=== PATIENT | female | born 1980 | race Caucasian/White ===

== ENCOUNTER 2018-08-01 19:44 | Emergency (ER) | payer OTHER ==
[~2018-08-01] VITALS: Ht 152.4 cm; Wt 47.2 kg
[2018-08-01 20:03] VITALS: BP 127/63
--- NOTE | 2018-08-01 20:07 | NUR ---
Pt ambulated to bed 2 with vss.
--- NOTE | 2018-08-01 20:10 | NUR ---
PT C/O COUGH X 3 WEEKS. PAIN 8/10. LUNGS CLEAR BILAT.
[2018-08-01] MEDS ORDERED: ALUMINUM HYD/MAG/SIMETHICONE 30 ML, DICYCLOMINE HCL LIQUID 20 MG, LIDOCAINE VISCOUS 2% ... PO ONE ×3 (20:30)
[2018-08-01 22:08] VITALS: BP 127/63
--- NOTE | 2018-08-01 22:08 | NUR ---
Patient discharged with v/s stable. Written and verbal after care instructions given and explained. Patient alert, oriented and verbalized understanding of instructions. Ambulatory with steady gait. All questions addressed prior to discharge. ID band removed. Patient advised to follow up with PMD. Rx of PEPCID AND TYLENOL EXTRA STRENGTH given. Patient educated on indication of medication including possible reaction and side effects. Opportunity to ask questions provided and answered.
== END 2018-08-01 22:08 | disposition home or self-care (01) ==
LOC: MED 19:44
DX: J02.9 Acute pharyngitis, unspecified (principal); J45.909 Unspecified asthma, uncomplicated; K21.9 Gastro-esophageal reflux disease without esophagitis
CPT/HCPCS: 99282

== ENCOUNTER 2019-11-04 15:10 | Emergency (ER) | payer OTHER ==
[~2019-11-04] VITALS: Ht 152.4 cm; Wt 45.4 kg
[2019-11-04 16:23] VITALS: BP 109/62
--- NOTE | 2019-11-04 16:30 | NUR ---
WAIT AT LOBBY.
--- NOTE | 2019-11-04 16:38 | NUR ---
Patient to chair Louis. RN evaluating patient.
--- NOTE | 2019-11-04 16:49 | NUR ---
PT TAKEN TO XR VIA WC.
--- NOTE | 2019-11-04 16:52 | NUR ---
38 Y/F PRESENTS TO ED 2HOUR S/P STEPPING ON A RUST NAIL WITH R FOOT. PUNCTURE SITE CLEAN, NO REDNESS, NO DRAINAGE, NO EDUDATE. PUNCTURE WOUND NOT VISIBLE TO THE EYE. PT REQUESTING TDAP. PT DENIES ANY FEVER, CHILLS, OR BODY ACHES. PMH- ASTHMA NKDA
--- NOTE | 2019-11-04 17:00 | NUR ---
DR. ALCANTARA AT BEDSIDE.
[2019-11-04 17:16] VITALS: BP 109/62
== END 2019-11-04 17:16 | disposition home or self-care (01) ==
LOC: MED 15:10
DX: S91.331A Puncture wound without foreign body, right foot, initial encounter (principal); J45.909 Unspecified asthma, uncomplicated; W22.8XXA Striking against or struck by other objects, initial encounter; Y93.89 Activity, other specified; Y92.89 Other specified places as the place of occurrence of the external cause; Y99.8 Other external cause status
CPT/HCPCS: 73630; 90471; 90715; 99283

== ENCOUNTER 2020-07-03 18:04 | Emergency (ER) | payer OTHER ==
[~2020-07-03] VITALS: Ht 152.4 cm; Wt 45.8 kg
[2020-07-03 18:11] VITALS: BP 111/44
--- NOTE | 2020-07-03 18:52 | NUR ---
RONALD cooney, walked to lab.
[2020-07-03 19:03] VITALS: BP 111/44
--- NOTE | 2020-07-03 19:04 | NUR ---
Patient discharged with v/s stable. Written and verbal after care instructions given and explained. Patient alert, oriented and verbalized understanding of instructions. Ambulatory with steady gait. All questions addressed prior to discharge. ID band removed. Patient advised to follow up with PMD. Rx of ventolin HFA 90mcg inhalation QID PRN, and medrol 4mg tab PO given. Patient educated on indication of medication including possible reaction and side effects. Opportunity to ask questions provided and answered.
--- NOTE | 2020-07-03 19:05 | NUR ---
39 Y/O FEMALE C/O SOB X5HRS WITH DIZZINESS. DENIES N/V/D, DENIES FEVER/CHILLS. PMH: ASTHMA NKA
== END 2020-07-03 19:03 | disposition home or self-care (01) ==
LOC: MED 18:04
DX: R06.02 Shortness of breath (principal); Z20.828 Contact with and (suspected) exposure to other viral communicable diseases; J45.909 Unspecified asthma, uncomplicated
CPT/HCPCS: 99283; U0003

== ENCOUNTER 2020-09-18 14:29 | Emergency (ER) | payer OTHER ==
[~2020-09-18] VITALS: Ht 152.4 cm; Wt 47.6 kg
[2020-09-18 14:34] VITALS: BP 102/86
--- NOTE | 2020-09-18 14:41 | NUR ---
URINE SPECIMEN COLLECTED.
--- NOTE | 2020-09-18 14:44 | NUR ---
P;T AMB TO BED 5.
--- NOTE | 2020-09-18 15:02 | NUR ---
39 YEAR OLD FEMALE COMPLAINS OF VAGINAL BLEEDING AND LOWER ABDOMINAL PAIN X 3 DAYS. PT STATES FOR 7 WEEKS.PT AOX4, BREATHING EVEN AND UNLABORED, SKIN WARM AND DRY. BED IN LOWEST POSITION, LOCKED, BED RAIL UPX1. PMH - C SECTION ALLERGIES - NKA
[2020-09-18 15:09] LABS: BASOPHILS % (AUTO) 0.5 % (0.0-2.0); EOSINOPHILS # (AUTO) 0.1 K/uL (0-0.4); EOSINOPHILS % (AUTO) 1.9 % (0.0-4.0); HEMATOCRIT 35.2 % (36-48); HEMOGLOBIN 11.6 g/dL (12.0-16.0); LYMPHOCYTES # (AUTO) 1.8 K/uL (2.5-16.5); LYMPHOCYTES % (AUTO) 22.9 % (20.5-51.1); MEAN CORPUSCULAR HEMOGLOBIN 30 pg (27-31); MEAN CORPUSCULAR HGB CONC 33 g/dL (33-37); MEAN CORPUSCULAR VOLUME 91.5 fL (80-94); MONOCYTES # (AUTO) 0.5 K/uL (0.8-1.0); MONOCYTES % (AUTO) 6.2 % (1.7-9.3); NEUTROPHILS # (AUTO) 5.3 K/uL (1.8-7.7); NEUTROPHILS % (AUTO) 68.5 % (42.2-75.2); PLATELET COUNT (AUTO) 210 K/uL (140-450); RED BLOOD CELL COUNT(AUTO) 3.84 MIL/uL (4.20-5.40); RED CELL DISTRIBUTION WIDTH 13.3 % (11.6-13.7); WHITE BLOOD COUNT (AUTO) 7.7 K/uL (4.8-10.8)
[2020-09-18 15:17] LABS: APPEARANCE,URINE HAZY (CLEAR); BILIRUBIN,URINE NEGATIVE (NEGATIVE); BLOOD, URINE 3+ (NEGATIVE); LEUKOCYTE ESTERASE ,URINE TRACE (NEGATIVE); NITRITE, URINE NEGATIVE (NEGATIVE); UGLUCOSE NEGATIVE (NEGATIVE)
[2020-09-18 15:23] LABS: ANION GAP 12.2 (8-16); CARBON DIOXIDE 26.7 mmol/L (21-32); CREATININE 0.6 mg/dL (0.6-1.3); POTASSIUM 3.9 mmol/L (3.5-5.1)
[2020-09-18 15:28] LABS: COLOR,URINE SLIGHT BLOODY (YELLOW)
[2020-09-18 15:34] LABS: RBC,URINE TOO NUMEROUS TO COUN /HPF (0-5); WBC,URINE 0-5 /HPF (0-5)
--- NOTE | 2020-09-18 16:30 | NUR ---
PT ALERT AND AWAKE, BREATHING EVEN AND UNLABORED. NO DISTRESS NOTED.
[2020-09-18 17:05] VITALS: BP 102/86
--- NOTE | 2020-09-18 17:05 | NUR ---
Patient discharged with v/s stable. Written and verbal after care instructions about threatened miscarriage given and explained. Patient verbalized understanding. Ambulatory with steady gait. All questions addressed prior to discharge. Advised to follow up with PMD.
[2020-09-19] MEDS ORDERED: ACET-8386 PO (17:27)
== END 2020-09-18 17:05 | disposition home or self-care (01) ==
LOC: MED 14:29
DX: O03.4 Incomplete spontaneous abortion without complication (principal); J45.909 Unspecified asthma, uncomplicated; Z3A.01 Less than 8 weeks gestation of pregnancy
CPT/HCPCS: 36415; 76801; 80048; 81001; 84702; 85025; 86900; 86901; 99284

== ENCOUNTER 2020-09-19 15:39 | Emergency (ER) | payer OTHER ==
[~2020-09-19] VITALS: Ht 152.4 cm; Wt 47.6 kg
[2020-09-19 15:46] VITALS: BP 113/84
[2020-09-19] MEDS ORDERED: KETOROLAC 30 MG/ML VIAL IM ONE (16:10)
[2020-09-19] MEDS ORDERED: ONDANSETRON 4 MG ODT PO ONE (16:10)
[2020-09-19 16:45] LABS: BASOPHILS # (AUTO) 0.1 K/uL (0.00-0.22); BASOPHILS % (AUTO) 0.8 % (0.0-2.0); EOSINOPHILS # (AUTO) 0.1 K/uL (0-0.4); EOSINOPHILS % (AUTO) 2.1 % (0.0-4.0); HEMATOCRIT 30.5 % (36-48); HEMOGLOBIN 10.3 g/dL (12.0-16.0); LYMPHOCYTES # (AUTO) 1.5 K/uL (2.5-16.5); LYMPHOCYTES % (AUTO) 22.8 % (20.5-51.1); MEAN CORPUSCULAR HEMOGLOBIN 31 pg (27-31); MEAN CORPUSCULAR HGB CONC 34 g/dL (33-37); MONOCYTES # (AUTO) 0.4 K/uL (0.8-1.0); MONOCYTES % (AUTO) 6.7 % (1.7-9.3); NEUTROPHILS # (AUTO) 4.5 K/uL (1.8-7.7); NEUTROPHILS % (AUTO) 67.6 % (42.2-75.2); PLATELET COUNT (AUTO) 182 K/uL (140-450); RED BLOOD CELL COUNT(AUTO) 3.32 MIL/uL (4.20-5.40); RED CELL DISTRIBUTION WIDTH 13.2 % (11.6-13.7); WHITE BLOOD COUNT (AUTO) 6.6 K/uL (4.8-10.8)
[2020-09-19] MEDS ORDERED: ACET-8386 PO (17:27)
[2020-09-19 17:37] VITALS: BP 118/78
== END 2020-09-19 17:37 | disposition home or self-care (01) ==
LOC: MED 15:39
DX: O03.9 Complete or unspecified spontaneous abortion without complication (principal); J45.909 Unspecified asthma, uncomplicated; Z79.899 Other long term (current) drug therapy; Z3A.01 Less than 8 weeks gestation of pregnancy
CPT/HCPCS: 36415; 84702; 85025; 96372; 99283; J1885; Q0162

== ENCOUNTER 2020-09-20 20:49 | Inpatient (IN) | payer OTHER, SELFPAY ==
[~2020-09-20] VITALS: Ht 152.4 cm; Wt 47.6 kg
[~2020-09-20 20:49] MED LIST: ACET-8386 PO
[2020-09-20 20:53] VITALS: BP 108/81
[2020-09-20 22:31] LABS: BASOPHILS # (AUTO) 0.1 K/uL (0.00-0.22); BASOPHILS % (AUTO) 1.4 % (0.0-2.0); EOSINOPHILS # (AUTO) 0.2 K/uL (0-0.4); HEMATOCRIT 27.8 % (36-48); HEMOGLOBIN 9.4 g/dL (12.0-16.0); LYMPHOCYTES # (AUTO) 2.3 K/uL (2.5-16.5); LYMPHOCYTES % (AUTO) 37.9 % (20.5-51.1); MEAN CORPUSCULAR HEMOGLOBIN 31 pg (27-31); MEAN CORPUSCULAR HGB CONC 34 g/dL (33-37); MONOCYTES # (AUTO) 0.4 K/uL (0.8-1.0); MONOCYTES % (AUTO) 7.3 % (1.7-9.3); NEUTROPHILS # (AUTO) 2.9 K/uL (1.8-7.7); NEUTROPHILS % (AUTO) 49.4 % (42.2-75.2); PLATELET COUNT (AUTO) 175 K/uL (140-450); RED BLOOD CELL COUNT(AUTO) 3.02 MIL/uL (4.20-5.40); RED CELL DISTRIBUTION WIDTH 13.3 % (11.6-13.7)
[2020-09-21] MEDS ORDERED: KETOROLAC 30 MG/ML VIAL IVP ONE (00:15)
[2020-09-21] MEDS ORDERED: NACL 0.9% 1,000 ML IV ONE (00:30)
[2020-09-21] MEDS ORDERED: PIPERACILLIN/TAZOBACTAM 3.375 GM in DEXTROSE 5% 50 ML IV ONE (00:30)
[2020-09-21] MEDS ORDERED: PIPERACILLIN/TAZOBACTAM 3.375 GM VIAL IV ONE (01:14)
[2020-09-21] MEDS ORDERED: MISOPROSTOL 200 MCG TAB PO ONE ×2 (01:45→09:00)
[2020-09-21 11:25] VITALS: BP 104/62
[2020-09-21] MEDS: LACTATED RINGERS 1,000 ML IV SCH ×2 (11:55→18:31)
[2020-09-21] MEDS ORDERED: ONDANSETRON 4 MG/2 ML VIAL IVP PRN (12:05)
[2020-09-21] MEDS ORDERED: MORPHINE SULFATE 10 MG/ML VIAL IVP PRN (12:15)
[2020-09-21] MEDS: MISOPROSTOL 200 MCG TAB PO SCH ×2 (15:10→21:23)
[2020-09-21] MEDS ORDERED: ACETAMINOPHEN 325 MG TAB PO PRN (19:40)
[2020-09-21] MEDS: ACETAMINOPHEN EXTRA STRENGTH 500 MG TAB PO PRN (20:39)
[2020-09-21 20:55] LABS: ALBUMIN 3.3 g/dL (3.4-5.0); ANION GAP 11.6 (8-16); CARBON DIOXIDE 26.5 mmol/L (21-32); CREATININE 0.6 mg/dL (0.6-1.3); POTASSIUM 3.1 mmol/L (3.5-5.1); TOTAL BILIRUBIN 0.3 mg/dL (0.0-1.0)
[2020-09-21] MEDS: ZOLPIDEM 10 MG TAB PO SCH (21:24)
[2020-09-21] MEDS: POTASSIUM CHLORIDE 10 MEQ TABER PO SCH (22:17)
[2020-09-22] MEDS: LACTATED RINGERS 1,000 ML IV SCH (01:39)
[2020-09-22] MEDS ORDERED: KETOROLAC 30 MG/ML VIAL IVP SCH (06:45)
[2020-09-22] MEDS ORDERED: ONDANSETRON 4 MG/2 ML VIAL IVP PRN (07:15)
[2020-09-22] MEDS ORDERED: HYDROmorphone 1 MG/ML AMP IVP PRN (07:15)
== END 2020-09-22 09:08 | disposition home or self-care (01) | DRG 544 ==
LOC: MED 20:49 → MMU 09-21 01:46 → MFCC 09-21 11:11 → OBSVTOIN 09-21 21:27
PROVIDERS: ADMIT Obstetrics & Gynecology; ATTEND Obstetrics & Gynecology
PROC: 10D17ZZ Extraction of Products of Conception, Retained, Via Natural or Artificial Opening (ICD-10-PCS; principal; 2020-09-22 06:30)
DX: O03.4 Incomplete spontaneous abortion without complication (principal); D62 Acute posthemorrhagic anemia; Z20.822 Contact with and (suspected) exposure to COVID-19; O99.011 Anemia complicating pregnancy, first trimester
CPT/HCPCS: G0378 ×20; 36415; 76817; 76830; 80053; 84702; 85025; 86886; 86900; 86901; 87040; J1885; J2543; J7030; J7120

== ENCOUNTER 2022-03-03 08:33 | Emergency (ER) | payer OTHER ==
[~2022-03-03] VITALS: Ht 152.4 cm; Wt 46.0 kg
[2022-03-03 08:38] VITALS: BP 107/73
--- NOTE | 2022-03-03 08:44 | NUR ---
PATIENT AMBULATED TO BED 8.
--- NOTE | 2022-03-03 08:54 | NUR ---
ULTRASOUND AT BEDSIDE
--- NOTE | 2022-03-03 09:05 | NUR ---
SIN AT BEDSIDE FOR EVALUATION
--- NOTE | 2022-03-03 09:53 | NUR ---
Note undone in EDM - 03/03/22 at 1052 by PHSEP 41YO FEMALE PT C/O VAGINAL BLEEDING XYESTERDAY. PT CURRENTLY , A3- LMP JANUARY 14. PT NOTES MILD BROWN BLEEDING ALONG W/ CRAMPING 6/10 LOWER ABDOMEN AND PELVIC PAIN. ABDOMEN NON DISTENDED OR TENDER TO TOUCH, ACTIVE X4. DENIES TAKING MEDICATION FOR PAIN, N/V/D , CHEST PAIN, SOB, FEVER OR CHILLS. PT AAOX4, NO VISIBLE DISTRESS. RESPIRATIONS EVEN AND UNLABORED. HOB POSITIONED PER COMFORT, BED AT LOWEST POSITION, BED RAIL UP X1. HX: DENIES NKA
--- NOTE | 2022-03-03 09:53 | NUR ---
41YO FEMALE PT C/O VAGINAL BLEEDING XYESTERDAY. PT CURRENTLY , A3- LMP JANUARY 14. PT NOTES MILD BROWN BLEEDING ALONG W/ CRAMPING 6/10 LOWER ABDOMEN AND PELVIC PAIN. ABDOMEN NON DISTENDED OR TENDER TO TOUCH, ACTIVE X4. DENIES TAKING MEDICATION FOR PAIN, N/V/D , CHEST PAIN, SOB, FEVER OR CHILLS. NOTES HAVING DX UTI BUT WAS UNABLE TO FINISH RX DUE TO "RASH" REACTION. DENIES DYSURIA OR HEMATURIA. PT AAOX4, NO VISIBLE DISTRESS. RESPIRATIONS EVEN AND UNLABORED. HOB POSITIONED PER COMFORT, BED AT LOWEST POSITION, BED RAIL UP X1. HX: DENIES NKA
[2022-03-03 10:17] LABS: APPEARANCE,URINE CLEAR (CLEAR); BILIRUBIN,URINE NEGATIVE (NEGATIVE); BLOOD, URINE 2+ (NEGATIVE); COLOR,URINE YELLOW (YELLOW); LEUKOCYTE ESTERASE ,URINE 1+ (NEGATIVE); NITRITE, URINE NEGATIVE (NEGATIVE); PH,URINE 6.5 (5.0-9.0); UGLUCOSE NEGATIVE (NEGATIVE)
[2022-03-03 10:25] LABS: BASOPHILS % (AUTO) 0.8 % (0.0-2.0); EOSINOPHILS % (AUTO) 0.5 % (0.0-4.0); HEMATOCRIT 32.9 % (36-48); HEMOGLOBIN 10.6 g/dL (12.0-16.0); LYMPHOCYTES # (AUTO) 1.1 K/uL (2.5-16.5); LYMPHOCYTES % (AUTO) 22.6 % (20.5-51.1); MEAN CORPUSCULAR HEMOGLOBIN 27 pg (27-31); MEAN CORPUSCULAR HGB CONC 32 g/dL (33-37); MEAN CORPUSCULAR VOLUME 82.2 fL (80-94); MONOCYTES # (AUTO) 0.4 K/uL (0.8-1.0); MONOCYTES % (AUTO) 7.6 % (1.7-9.3); NEUTROPHILS # (AUTO) 3.2 K/uL (1.8-7.7); NEUTROPHILS % (AUTO) 68.5 % (42.2-75.2); PLATELET COUNT (AUTO) 183 K/uL (140-450); RED CELL DISTRIBUTION WIDTH 16.4 % (11.6-13.7); WHITE BLOOD COUNT (AUTO) 4.7 K/uL (4.8-10.8)
[2022-03-03 10:35] LABS: OTHER CASTS, URINE None Seen /LPF (None Seen)
[2022-03-03 10:39] LABS: ALBUMIN 3.2 g/dL (3.4-5.0); ANION GAP 12.7 (8-16); CARBON DIOXIDE 24.6 mmol/L (21-32); CREATININE 0.6 mg/dL (0.6-1.3); POTASSIUM 3.3 mmol/L (3.5-5.1); TOTAL BILIRUBIN 0.3 mg/dL (0.0-1.0)
[2022-03-03] MEDS ORDERED: cephALEXin 500 MG CAP PO ONE (10:40)
[2022-03-03] MEDS ORDERED: CEPH-588 PO (10:53)
[2022-03-03] MEDS ORDERED: PNV91TAB8 PO (10:54)
[2022-03-03] MEDS ORDERED: POTASSIUM CHLORIDE 10 MEQ TABER PO ONE (11:00)
[2022-03-03 11:11] VITALS: BP 109/78
--- NOTE | 2022-03-03 11:11 | NUR ---
Patient discharged with v/s stable. Written and verbal after care instructions FOR THREATENED MISSCARRIAGE, AND UTI given and explained. Patient alert, oriented and verbalized understanding of instructions. Ambulatory with steady gait. All questions addressed prior to discharge. ID band removed. Patient advised to follow up with PMD. Rx of KEFLEX AND TAB given Opportunity to ask questions provided and answered.
--- NOTE | 2022-03-03 11:42 | NUR ---
The patient's care was reviewed and supervised by ED Agency Nurse 9, RN, RN.
== END 2022-03-03 11:11 | disposition home or self-care (01) ==
LOC: MED 08:33
DX: O20.0 Threatened abortion (principal); O99.011 Anemia complicating pregnancy, first trimester; O34.81 Maternal care for other abnormalities of pelvic organs, first trimester; O23.41 Unspecified infection of urinary tract in pregnancy, first trimester; N39.0 Urinary tract infection, site not specified; E87.6 Hypokalemia; N83.202 Unspecified ovarian cyst, left side; J45.909 Unspecified asthma, uncomplicated; Z3A.01 Less than 8 weeks gestation of pregnancy; Z79.899 Other long term (current) drug therapy; Z98.890 Other specified postprocedural states
CPT/HCPCS: 36415; 76817; 80053; 81001; 81025; 83690; 84702; 85025; 86900; 86901; 87086; 99284; Q0092